=== PATIENT | female | born 1950 | race Caucasian/White ===

== ENCOUNTER 2018-09-28 15:07 | Emergency (ER) | payer OTHER ==
[2018-09-28 15:32] VITALS: BP 157/100; PULSE 83; TEMP 98.5; BMI 30.5
[2018-09-28] MEDS ORDERED: IBUPROFEN 400 MG TABLET (FP) PO ONE ×2 (15:59→16:09)
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
== END 2018-09-28 17:20 | disposition home or self-care (01) ==
LOC: FER 15:07
CPT/HCPCS: 72100-TC-FY; 99281-25

== ENCOUNTER 2019-06-18 19:19 | Emergency (ER) | payer OTHER ==
[2019-06-18] MEDS ORDERED: KETOROLAC TROMETHAMINE 30 MG/1 ML VIAL IM ONE (19:22)
[2019-06-18] MEDS ORDERED: KETOROLAC TROMETHAMINE 30 MG/1 ML VIAL ONE (19:30)
[2019-06-18 19:36] VITALS: BP 156/86; PULSE 73; TEMP 97.7; BMI 27.9
--- NOTE | 2019-06-18 22:34 | PDOC ---
Documentation entered by Dennis Little SCRIBE, acting as scribe for Olegario Calhoun MD. Olegario Calhoun MD: This documentation has been prepared by the Anabel sousa Xhesika, SCRIBE, under my direction and personally reviewed by me in its entirety. I confirm that the documentation accurately reflects all work, treatment, procedures, and medical decision making performed by me. History of Present Illness - General Chief Complaint: Back Pain Stated Complaint: BACK PAIN Time Seen by Provider: 06/18/19 19:22 History Source: Patient, Family Exam Limitations: No Limitations - History of Present Illness Initial Comments: 06/18/19 19:32 The patient is a 68 year old female with a significant PMH of high cholesterol, hypertension, and hypothyroidism who presents to the emergency department for chronic back pain, worsened today. Pt states she bent over to pick something up and felt sudden onset sharp back pain radiating down her legs. Niece at bedside states the patient has been going to a rehabilitation center for chronic spinal/ lower back pain. Pt states her pain is aggravated with movements and bending and alleviated when standing up straight. Pt states she took 3 Advils this morning with mild relief of symptoms. The patient denies chest pain, shortness of breath, headache and dizziness. Denies fever, chills, cough, nausea, vomiting, diarrhea and constipation. Denies dysuria, frequency, urgency and hematuria. Allergies: [facility] Primary Care Physician: Dr. Somers Past History - Past Medical History Allergies/Adverse Reactions: Allergies Allergy/AdvReac Type Severity Reaction Status Date / Time No Known Allergies Allergy Verified 06/18/19 19:22 Home Medications: Ambulatory Orders Olmesartan Medoxomil [Benicar -] 40 mg PO DAILY 05/22/13 Simvastatin [Zocor -] 20 mg PO AM 05/22/13 Famotidine [Pepcid -] 40 mg PO HS 06/18/19 Levothyroxine [Synthroid -] 100 mcg PO DAILY 06/18/19 Oxycodone HCl/Acetaminophen [Percocet 5-325 mg Tablet] 1 tab PO Q8H PRN #9 tab MDD 3 tabs 06/18/19 Anemia: No Asthma: No Cancer: No Cardiac Disorders: No CVA: No COPD: No CHF: No Dementia: No Diabetes: No GI Disorders: No Disorders: No HTN: Yes Hypercholesterolemia: Yes Liver Disease: No Seizures: No Thyroid Disease: No - Surgical History Abdominal Surgery: No Appendectomy: Yes Cardiac Surgery: No Cholecystectomy: Yes Lung Surgery: No Neurologic Surgery: No Orthopedic Surgery: Yes (Left Knee Arthroscopy) - Psycho Social/Smoking Cessation Hx Smoking History: Never smoked Have you smoked in the past 12 months: No Information on smoking cessation initiated: No Hx Alcohol Use: No Drug/Substance Use Hx: No Substance Use Type: None, Alcohol Hx Substance Use Treatment: No Review of Systems - Review of Systems Comments:: 06/18/19 19:33 GENERAL/CONSTITUTIONAL: No fever or chills. No weakness. HEAD, EYES, EARS, NOSE AND THROAT: No change in vision. No ear pain or discharge. No sore throat. CARDIOVASCULAR: No chest pain or shortness of breath. RESPIRATORY: No cough, wheezing, or hemoptysis. GASTROINTESTINAL: No nausea, vomiting, diarrhea or constipation. GENITOURINARY: No dysuria, frequency, or change in urination. MUSCULOSKELETAL: No joint or muscle swelling or pain. No neck.+ back pain. SKIN: No rash NEUROLOGIC: No headache, vertigo, loss of consciousness, or change in strength/ sensation. ENDOCRINE: No increased thirst. No abnormal weight change. HEMATOLOGIC/LYMPHATIC: No anemia, easy bleeding, or history of blood clots. ALLERGIC/IMMUNOLOGIC: No hives or skin allergy. *Physical Exam - Vital Signs Last Vital Signs Temp Pulse Resp BP Pulse Ox 97.7 F 73 18 156/86 97 06/18/19 19:19 06/18/19 19:19 06/18/19 19:19 06/18/19 19:19 06/18/19 19:19 - Physical Exam 06/18/19 19:33 GENERAL: Awake, alert, and fully oriented, in no acute distress LUNGS: Breath sounds equal, clear to auscultation bilaterally. No wheezes, and no crackles HEART: Regular rate and rhythm, normal S1 and S2, no murmurs, rubs or gallops ABDOMEN: Soft, nontender, normoactive bowel sounds. No guarding, no rebound. No masses BACK: no reproducible back pain. EXTREMITIES: Normal range of motion, no edema. No clubbing or cyanosis. No cords, erythema, or tenderness NEUROLOGICAL: Cranial nerves II through XII grossly intact. Normal speech, normal gait SKIN: Warm, Dry, normal turgor, no rashes or lesions noted. ED Treatment Course - Medications Given in the ED: ED Medications Discontinued Medications Generic Name Dose Route Start Last Admin Trade Name Kahlil PRN Reason Stop Dose Admin Ketorolac Tromethamine 30 mg 06/18/19 19:22 06/18/19 19:40 Toradol Injection - IM 06/18/19 19:23 30 mg ONCE ONE Administration Oxycodone/Acetaminophen 1 combo 06/18/19 19:23 06/18/19 19:33 Percocet 5/325 - PO 06/18/19 19:24 1 combo ONCE ONE Administration Medical Decision Making - Medical Decision Making 06/18/19 22:33 msk lbp analgesia pm&R Discharge - Discharge Information Problems reviewed: Yes Clinical Impression/Diagnosis: Back pain Qualifiers: Back pain location: low back pain Chronicity: acute Back pain laterality: unspecified Sciatica presence: unspecified whether sciatica present Qualified Code(s): M54.5 - Low back pain Condition: Stable Disposition: HOME - Admission No - Additional Discharge Information Prescriptions: Oxycodone HCl/Acetaminophen [Percocet 5-325 mg Tablet] 1 tab PO Q8H PRN #9 tab MDD 3 tabs PRN Reason: Pain - Follow up/Referral Referrals: Dayanara Somers MD [Primary Care Provider] - - Patient Discharge Instructions Patient Printed Discharge Instructions: DI for Low Back Pain - Post Discharge Activity
== END 2019-06-18 20:30 | disposition home or self-care (01) ==
LOC: FER 19:19
PROC: 3E0233Z Introduction of Anti-inflammatory into Muscle, Percutaneous Approach (ICD-10-PCS; principal; 2019-06-18)
DX: M54.5 Low back pain (principal); E78.00 Pure hypercholesterolemia, unspecified; I10 Essential (primary) hypertension
CPT/HCPCS: 99283-25

== ENCOUNTER 2021-10-29 20:15 | Emergency (ER) | payer OTHER ==
[2021-10-29 20:44] VITALS: BP 129/75; PULSE 87; TEMP 97.8; BMI 29.6
[2021-10-29 21:52] LABS: HEMATOCRIT 37.7 % (32.4-45.2); HEMOGLOBIN 13.4 G/dL (10.7-15.3); MCH 30.1 pg (25.7-33.7); MCHC 35.4 g/dl (32.0-36.0); PLATELET COUNT 232.1 10^3/uL (134-434); RBC 4.44 10^6/uL (3.60-5.2); RDW 13.7 % (11.6-15.6); WHITE BLOOD COUNT 10.9 10^3/uL (4.0-10.8)
[2021-10-29 22:06] LABS: ALBUMIN 4.2 g/dl (3.4-5.0); BILIRUBIN,TOTAL 0.7 mg/dl (0.2-1); CALCIUM 9.8 mg/dl (8.5-10); CREATININE 0.8 mg/dl (0.55-1.3); TOT PROT 6.8 g/dl (6.4-8.2)
[2021-10-29 22:07] LABS: INR 0.98 (0.83-1.09); PROTHROMBIN TIME (PATIENT) 11.3 SEC (9.7-13.0)
[2021-10-29 22:07] LABS: PLATELET ESTIMATE ADEQUATE
[2021-10-29] MEDS ORDERED: VANCOMYCIN 1,000 MG in DEXTROSE 5%-WATER - 250 ML IVPB ONE (22:19)
[2021-10-29] MEDS ORDERED: VANCOMYCIN 1,000 MG VIAL (RESTRICTED TO ID ONLY) ONE (22:27)
== END 2021-10-30 00:57 | disposition home or self-care (01) ==
LOC: FER 20:15
PROC: 3E033GC Introduction of Other Therapeutic Substance into Peripheral Vein, Percutaneous Approach (ICD-10-PCS; principal; 2021-10-29)
DX: L03.115 Cellulitis of right lower limb (principal); L03.116 Cellulitis of left lower limb
CPT/HCPCS: 36415; 80053; 85027; 85610; 93970-TC; 99284-25